=== PATIENT | female | born 1955 | race Caucasian/White ===

== ENCOUNTER 2018-05-15 07:38 | Inpatient (IN) | payer OTHER, MEDICAID ==
[2018-05-15] VITALS (7 sets, daily range): BP systolic 123–151; BP diastolic 79–111
[~2018-05-15] VITALS: Ht 157.5 cm; Wt 54.5 kg
[2018-05-15 08:17] LABS: CLARITY,URINE SLIGHTLY CLOUDY (Clear); COLOR,URINE YELLOW (Yellow); GLUCOSE, URINE NEGATIVE (Neg); KETONES,URINE 15 mg/dl (Neg); LEUKOCYTE ESTERASE ,URINE NEGATIVE (Neg); NITRITES, URINE NEGATIVE (Neg); OCCULT BLOOD,URINE SMALL (Neg); PROTEIN,URINE 30 mg/dl (Neg); UROBILINOGEN,URINE 0.2 E.U/dL (0.2-1.0)
[2018-05-15 08:23] LABS: UA COLLECTION TYPE CLN CATCH MIDSTREAM
[2018-05-15 08:27] LABS: BACTERIA,URINE 1+ /HPF (Neg); MUCUS STRANDS MANY /LPF (Neg); SQUAMOUS EPITHELIAL CELL,UR MANY /LPF (FEW)
[2018-05-15 08:50] LABS: BASOPHILS # (AUTO) 0.1 X10'3 (0-0.2); BASOPHILS % (AUTO) 1.2 % (0-1); EOSINOPHILS % (AUTO) 0.4 % (0-6); HEMATOCRIT 40.4 % (35.0-45.0); LYMPHOCYTES % (AUTO) 19.4 % (21-51); MEAN CORPUSCULAR HEMOGLOBIN 36.9 PG (27.0-31.0); MEAN CORPUSCULAR HGB CONC 34.7 % (33.0-36.5); MEAN CORPUSCULAR VOLUME 106.4 FL (78-98); MEAN PLATELET VOLUME 7.3 FL (7.4-10.4); MONOCYTES # (AUTO) 0.3 X10'3 (0-0.9); NEUTROPHILS # (AUTO) 3.8 X10'3 (1.8-7.7); PLATELET COUNT 156 X10'3 (140-440); RED CELL DISTRIBUTION WIDTH 14.2 % (11.5-14.5); WHITE BLOOD COUNT 5.2 X10'3 (4.5-11.0)
[2018-05-15 09:01] LABS: URINE AMPHETAMINE SCREEN NEGATIVE (Neg); URINE BARBITUATE SCREEN NEGATIVE (Neg); URINE BENZODIAZEPINES SCREEN NEGATIVE (Neg); URINE CANNABINOID SCREEN NEGATIVE (Neg); URINE COCAINE SCREEN NEGATIVE (Neg); URINE METHADONE SCREEN NEGATIVE (Neg); URINE OPIATE SCREEN NEGATIVE (Neg); URINE PHENCYCLIDINE SCREEN NEGATIVE (Neg)
[2018-05-15 09:07] LABS: ALANINE AMINOTRANSFERASE 33 U/L (12-78); ALBUMIN/GLOBULIN RATIO 0.9 (1.1-1.5); ALKALINE PHOSPHATASE 198 IU/L (46-116); ANION GAP 15 (8-16); ASPARTATE AMINO TRANSFERASE 126 U/L (10-37); BILIRUBIN,TOTAL 0.2 MG/DL (0.1-1.0); BLOOD UREA NITROGEN 12 MG/DL (7-18); BUN/CREATININE RATIO 20.7 (6.6-38.0); CALCIUM 7.9 MG/DL (8.5-10.1); CHLORIDE 99 MMOL/L (99-107); CREATININE 0.58 MG/DL (0.40-0.90); ETHANOL 0.161 GM/DL (0.0-0.010); GLUCOSE 107 MG/DL (70-104); SODIUM 141 MMOL/L (135-145); TOTAL PROTEIN 6.5 G/DL (6.4-8.2); eGFR > 90 ML/MIN
[2018-05-15 09:09] LABS: ACETAMINOPHEN < 2.0 UG/ML (10-30); INR 0.9 INR; PARTIAL THROMBOPLASTIN TIME 27 SECONDS (22-32); PROTHROMBIN TIME 9.6 SECONDS (9.0-12.0)
[2018-05-15 09:10] LABS: POTASSIUM 2.9 MMOL/L (3.5-5.1)
[2018-05-15] MEDS ORDERED: potassium Cl 10 mEq/100mL bag IV ONE (09:15)
[2018-05-15] MEDS ORDERED: potassium 10mEq/100ml NS w/LIDOcaine (10mg/bag) IV ONE (09:25)
[2018-05-15] MEDS ORDERED: fentaNYL/PF 50MCG/1 ML 2ML syringe IV ONE (09:35)
[2018-05-15 09:45] LABS: MAGNESIUM 1.6 MG/DL (1.5-2.4)
[2018-05-15] MEDS ORDERED: pantoprazole IV 80 MG in normal saline 100ml IV soln 100 ML IV ONE (10:05)
[2018-05-15] MEDS: pantoprazole 40 MG vial IV SCH ×2 (10:34→10:47)
[2018-05-15] MEDS ORDERED: bisacodyl 10mg suppository rectal RC PRN (10:45)
[2018-05-15] MEDS ORDERED: cloNIDine 0.1 MG/24 HOUR patch (7 day patch) TD SCH (10:45)
[2018-05-15] MEDS ORDERED: magnesium hydroxide 30ml (MOM) UD suspension PO PRN (10:45)
[2018-05-15] MEDS: K and/or MAG REPLACEMENT MC SCH (10:45)
[2018-05-15] MEDS ORDERED: potassium Cl 40MEQ/NS 500ml 500 ML IV PRN ×2 (10:45)
[2018-05-15] MEDS ORDERED: ondansetron/PF 4mg/2ml inj IV PRN (10:45)
[2018-05-15] MEDS ORDERED: acetaminophen 325mg tablet PO PRN (10:45)
[2018-05-15] MEDS ORDERED: morphine 2 MG/ML inj. syringe IV PRN (10:45)
[2018-05-15] MEDS ORDERED: LORazepam 1 MG tablet PO PRN (10:45)
[2018-05-15] MEDS ORDERED: magnesium 4gm in 100ml NS 100 ML IV PRN (10:45)
[2018-05-15] MEDS ORDERED: LORazepam 2 mg/ml vial IV PRN ×2 (10:45→11:15)
[2018-05-15] MEDS ORDERED: potassium Cl 20 mEq SR tablet PO PRN (10:45)
[2018-05-15] MEDS ORDERED: mag hydrox/Alum hydrox/simeth 30ml oral suspension PO PRN (10:45)
[2018-05-15] MEDS ORDERED: dextrose 50%-water 50ml dispensing syringe IV PRN (10:45)
[2018-05-15] MEDS ORDERED: magnesium Cl slow-release 64mg tablet PO PRN (10:45)
[2018-05-15] MEDS ORDERED: magnesium 1gm/100ml D5W IVPB 100 ML IV PRN (10:45)
[2018-05-15] MEDS ORDERED: pantoprazole 40MG/NS 100ML BAG 100 ML IV SCH ×2 (11:00)
[2018-05-15] MEDS: LORazepam 1 MG tablet PO PRN (11:23)
[2018-05-15] MEDS ORDERED: LIDOcaine Viscous 15ml cup ONE (14:10)
[2018-05-15] MEDS ORDERED: MIDAZolam 5mg/5ml vial ONE (14:10)
[2018-05-15] MEDS ORDERED: fentaNYL/PF 50MCG/1 ML 2ML syringe ONE (14:10)
[2018-05-15 14:57] LABS: BASOPHILS % (AUTO) 0.9 % (0-1); EOSINOPHILS % (AUTO) 0.4 % (0-6); HEMATOCRIT 40.3 % (35.0-45.0); HEMOGLOBIN 13.7 g/dl (12.0-16.0); LYMPHOCYTES # (AUTO) 1.3 X10'3 (1.1-4.8); MEAN CORPUSCULAR HEMOGLOBIN 37.2 PG (27.0-31.0); MEAN CORPUSCULAR VOLUME 109.3 FL (78-98); MEAN PLATELET VOLUME 7.4 FL (7.4-10.4); MONOCYTES # (AUTO) 0.3 X10'3 (0-0.9); MONOCYTES % (AUTO) 6.8 % (2-12); NEUTROPHILS # (AUTO) 3.4 X10'3 (1.8-7.7); NEUTROPHILS % (AUTO) 65.9 % (42-75); PLATELET COUNT 114 X10'3 (140-440); RED BLOOD COUNT 3.69 X10'6 (4.20-5.60); RED CELL DISTRIBUTION WIDTH 14.3 % (11.5-14.5)
[2018-05-15] MEDS: morphine 2 MG/ML inj. syringe IV PRN ×2 (17:38→21:21)
[2018-05-15] MEDS: pantoprazole 40MG/NS 100ML BAG 100 ML IV SCH ×2 (17:41→21:28)
[2018-05-15] MEDS: potassium cl 20mEq in 1/2 NS 1,000 ML IV SCH ×2 (20:44→22:00)
[2018-05-15 20:47] LABS: BASOPHILS % (AUTO) 0.9 % (0-1); EOSINOPHILS % (AUTO) 0.5 % (0-6); HEMOGLOBIN 13.7 g/dl (12.0-16.0); LYMPHOCYTES # (AUTO) 1.3 X10'3 (1.1-4.8); LYMPHOCYTES % (AUTO) 25.2 % (21-51); MEAN CORPUSCULAR HEMOGLOBIN 37.2 PG (27.0-31.0); MEAN CORPUSCULAR HGB CONC 34.3 % (33.0-36.5); MEAN CORPUSCULAR VOLUME 108.3 FL (78-98); MEAN PLATELET VOLUME 7.7 FL (7.4-10.4); MONOCYTES # (AUTO) 0.4 X10'3 (0-0.9); MONOCYTES % (AUTO) 8.5 % (2-12); NEUTROPHILS # (AUTO) 3.5 X10'3 (1.8-7.7); NEUTROPHILS % (AUTO) 64.9 % (42-75); PLATELET COUNT 134 X10'3 (140-440); RED BLOOD COUNT 3.69 X10'6 (4.20-5.60); RED CELL DISTRIBUTION WIDTH 14.2 % (11.5-14.5); WHITE BLOOD COUNT 5.2 X10'3 (4.5-11.0)
[2018-05-15] MEDS: potassium Cl 20 mEq SR tablet PO PRN (21:21)
[2018-05-15] MEDS: folic acid inj. 2 MG, thiamine inj. 100 MG, MVI, adult No.4 with vit. K 10 ML in dextro... IV SCH ×4 (22:04)
[2018-05-15] MEDS ORDERED: NO HOME MEDS (23:49)
[2018-05-16] VITALS: BP_SYST 129; BP_SYST 131; BP_SYST 154; BP_DIAS 102; BP_DIAS 84; BP_DIAS 98
[2018-05-16] MEDS: potassium Cl 20 mEq SR tablet PO PRN ×2 (01:26→05:27)
[2018-05-16] MEDS: morphine 2 MG/ML inj. syringe IV PRN ×4 (01:26→14:15)
[2018-05-16] MEDS: pantoprazole 40MG/NS 100ML BAG 100 ML IV SCH ×2 (01:26→05:27)
[2018-05-16 05:53] LABS: BASOPHILS % (AUTO) 0.7 % (0-1); EOSINOPHILS # (AUTO) 0.1 X10'3 (0-0.9); EOSINOPHILS % (AUTO) 1.2 % (0-6); HEMATOCRIT 37.4 % (35.0-45.0); HEMOGLOBIN 13.1 g/dl (12.0-16.0); LYMPHOCYTES # (AUTO) 1.5 X10'3 (1.1-4.8); LYMPHOCYTES % (AUTO) 32.3 % (21-51); MEAN CORPUSCULAR HGB CONC 35.1 % (33.0-36.5); MEAN CORPUSCULAR VOLUME 108.5 FL (78-98); MEAN PLATELET VOLUME 7.7 FL (7.4-10.4); MONOCYTES # (AUTO) 0.4 X10'3 (0-0.9); MONOCYTES % (AUTO) 8.8 % (2-12); NEUTROPHILS # (AUTO) 2.6 X10'3 (1.8-7.7); PLATELET COUNT 108 X10'3 (140-440); RED BLOOD COUNT 3.44 X10'6 (4.20-5.60); WHITE BLOOD COUNT 4.6 X10'3 (4.5-11.0)
[2018-05-16 05:55] LABS: ALANINE AMINOTRANSFERASE 23 U/L (12-78); ALBUMIN 2.6 G/DL (3.4-5.0); ALBUMIN/GLOBULIN RATIO 0.8 (1.1-1.5); ALKALINE PHOSPHATASE 167 IU/L (46-116); ANION GAP 10 (8-16); ASPARTATE AMINO TRANSFERASE 57 U/L (10-37); BILIRUBIN,TOTAL 0.5 MG/DL (0.1-1.0); BLOOD UREA NITROGEN 9 MG/DL (7-18); BUN/CREATININE RATIO 15.5 (6.6-38.0); CALCIUM 7.8 MG/DL (8.5-10.1); CHLORIDE 99 MMOL/L (99-107); CREATININE 0.58 MG/DL (0.40-0.90); GLUCOSE 76 MG/DL (70-104); MAGNESIUM 1.4 MG/DL (1.5-2.4); POTASSIUM 3.4 MMOL/L (3.5-5.1); SODIUM 137 MMOL/L (135-145); TOTAL CARBON DIOXIDE 28.4 MMOL/L (24-32); TOTAL PROTEIN 5.7 G/DL (6.4-8.2); eGFR > 90 ML/MIN
[2018-05-16 08:00] VITALS: BP 149/78
[2018-05-16] MEDS: K and/or MAG REPLACEMENT MC SCH (08:00)
[2018-05-16] MEDS: nicotine 14mg patch - 24hr TD SCH (08:00)
[2018-05-16] MEDS: LORazepam 1 MG tablet PO PRN ×3 (08:25→22:46)
[2018-05-16] MEDS ORDERED: diltiazem 5mg/ml 5ml inj. IV ONE (09:20)
[2018-05-16 09:21] VITALS: BP 149/78
[2018-05-16] MEDS ORDERED: potassium Cl oral solution 20 MEQ/15 ML PO PRN (09:25)
[2018-05-16] MEDS: potassium Cl oral solution 20 MEQ/15 ML PO PRN ×3 (10:30→19:31)
[2018-05-16 11:00] VITALS: BP 139/76
[2018-05-16] MEDS: folic acid inj. 2 MG, thiamine inj. 100 MG, MVI, adult No.4 with vit. K 10 ML in dextro... IV SCH ×4 (11:27)
[2018-05-16 16:00] VITALS: BP_SYST 134; BP_SYST 136; BP_SYST 154; BP_DIAS 87; BP_DIAS 92
[2018-05-16 19:00] VITALS: BP 152/85
[2018-05-16] MEDS: pantoprazole 40mg Tablet.DR PO SCH (19:30)
[2018-05-16] MEDS: HYDROcodone/acetaminophen 5mg/325mg tablet PO PRN (19:31)
[2018-05-16] MEDS ORDERED: pantoprazole 40 MG vial IV SCH (20:00)
[2018-05-16] MEDS: sucralfate 1gm/10ml UD suspension PO SCH (22:43)
[2018-05-17] MEDS: gabapentin 300mg capsule PO SCH ×4 (01:18→23:24)
[2018-05-17 04:00] VITALS: BP_SYST 117; BP_SYST 124; BP_SYST 144; BP_DIAS 85; BP_DIAS 89; BP_DIAS 90
[2018-05-17 06:44] LABS: ALANINE AMINOTRANSFERASE 24 U/L (12-78); ALBUMIN 2.8 G/DL (3.4-5.0); ALBUMIN/GLOBULIN RATIO 0.9 (1.1-1.5); ALKALINE PHOSPHATASE 169 IU/L (46-116); ANION GAP 10 (8-16); ASPARTATE AMINO TRANSFERASE 40 U/L (10-37); BILIRUBIN,TOTAL 0.5 MG/DL (0.1-1.0); BLOOD UREA NITROGEN 5 MG/DL (7-18); BUN/CREATININE RATIO 8.9 (6.6-38.0); CALCIUM 8.4 MG/DL (8.5-10.1); CHLORIDE 102 MMOL/L (99-107); CREATININE 0.56 MG/DL (0.40-0.90); GLUCOSE 88 MG/DL (70-104); MAGNESIUM 1.6 MG/DL (1.5-2.4); POTASSIUM 4.6 MMOL/L (3.5-5.1); SODIUM 140 MMOL/L (135-145); TOTAL CARBON DIOXIDE 27.7 MMOL/L (24-32); TOTAL PROTEIN 5.8 G/DL (6.4-8.2); eGFR > 90 ML/MIN
[2018-05-17] MEDS: K and/or MAG REPLACEMENT MC SCH (08:00)
[2018-05-17] MEDS: folic acid inj. 2 MG, thiamine inj. 100 MG, MVI, adult No.4 with vit. K 10 ML in dextro... IV SCH ×4 (08:00)
[2018-05-17 08:10] VITALS: BP 137/84
[2018-05-17] MEDS: HYDROcodone/acetaminophen 5mg/325mg tablet PO PRN ×2 (08:14→17:15)
[2018-05-17] MEDS: sucralfate 1gm/10ml UD suspension PO SCH ×4 (08:14→20:16)
[2018-05-17] MEDS: pantoprazole 40mg Tablet.DR PO SCH ×2 (08:14→20:17)
[2018-05-17] MEDS: nicotine 14mg patch - 24hr TD SCH (08:18)
[2018-05-17 11:14] LABS: EOSINOPHILS % (AUTO) 1.1 % (0-6); HEMATOCRIT 35.8 % (35.0-45.0); HEMOGLOBIN 12.6 g/dl (12.0-16.0); LYMPHOCYTES # (AUTO) 1.2 X10'3 (1.1-4.8); MEAN CORPUSCULAR HEMOGLOBIN 38.3 PG (27.0-31.0); MEAN CORPUSCULAR HGB CONC 35.3 % (33.0-36.5); MEAN CORPUSCULAR VOLUME 108.4 FL (78-98); MONOCYTES # (AUTO) 0.5 X10'3 (0-0.9); MONOCYTES % (AUTO) 11.1 % (2-12); NEUTROPHILS # (AUTO) 2.5 X10'3 (1.8-7.7); NEUTROPHILS % (AUTO) 58.8 % (42-75); PLATELET COUNT 113 X10'3 (140-440); RED BLOOD COUNT 3.31 X10'6 (4.20-5.60); RED CELL DISTRIBUTION WIDTH 14.2 % (11.5-14.5); WHITE BLOOD COUNT 4.2 X10'3 (4.5-11.0)
[2018-05-17 12:00] VITALS: BP 117/75
[2018-05-17] MEDS: thiamine 100mg tablet PO SCH (13:28)
[2018-05-17] MEDS: folic acid 1mg tablet PO SCH (13:28)
[2018-05-17] MEDS: multivitamins, therapeutics tablet PO SCH (13:28)
[2018-05-17 18:00] VITALS: BP 106/68
[2018-05-17] MEDS: LORazepam 1 MG tablet PO PRN (20:16)
[2018-05-18] VITALS: BP 97/62
[2018-05-18] MEDS: LORazepam 1 MG tablet PO PRN ×2 (03:44→19:05)
[2018-05-18] MEDS: HYDROcodone/acetaminophen 5mg/325mg tablet PO PRN ×3 (03:45→19:44)
[2018-05-18 06:52] LABS: ALANINE AMINOTRANSFERASE 16 U/L (12-78); ALBUMIN 2.3 G/DL (3.4-5.0); ALBUMIN/GLOBULIN RATIO 0.8 (1.1-1.5); ALKALINE PHOSPHATASE 132 IU/L (46-116); ANION GAP 8 (8-16); ASPARTATE AMINO TRANSFERASE 23 U/L (10-37); BILIRUBIN,TOTAL 0.3 MG/DL (0.1-1.0); BLOOD UREA NITROGEN 5 MG/DL (7-18); BUN/CREATININE RATIO 8.3 (6.6-38.0); CALCIUM 7.7 MG/DL (8.5-10.1); CHLORIDE 105 MMOL/L (99-107); GLUCOSE 101 MG/DL (70-104); MAGNESIUM 1.5 MG/DL (1.5-2.4); SODIUM 142 MMOL/L (135-145); TOTAL CARBON DIOXIDE 28.9 MMOL/L (24-32); TOTAL PROTEIN 5.1 G/DL (6.4-8.2); eGFR > 90 ML/MIN
[2018-05-18 07:13] VITALS: BP 98/63
[2018-05-18 07:14] VITALS: BP_SYST 104; BP_SYST 93; BP_SYST 98; BP_DIAS 61; BP_DIAS 63; BP_DIAS 69
[2018-05-18] MEDS: pantoprazole 40mg Tablet.DR PO SCH ×2 (07:42→19:43)
[2018-05-18] MEDS: sucralfate 1gm/10ml UD suspension PO SCH ×4 (07:42→21:14)
[2018-05-18] MEDS: thiamine 100mg tablet PO SCH (07:42)
[2018-05-18] MEDS: gabapentin 300mg capsule PO SCH ×3 (07:43→23:46)
[2018-05-18] MEDS: multivitamins, therapeutics tablet PO SCH (07:43)
[2018-05-18] MEDS: nicotine 14mg patch - 24hr TD SCH (07:43)
[2018-05-18] MEDS: folic acid 1mg tablet PO SCH (07:43)
[2018-05-18] MEDS: K and/or MAG REPLACEMENT MC SCH (08:00)
[2018-05-18 08:54] LABS: BASOPHILS % (AUTO) 0.8 % (0-1); EOSINOPHILS # (AUTO) 0.1 X10'3 (0-0.9); EOSINOPHILS % (AUTO) 1.3 % (0-6); HEMATOCRIT 33.1 % (35.0-45.0); HEMOGLOBIN 11.5 g/dl (12.0-16.0); LYMPHOCYTES # (AUTO) 1.6 X10'3 (1.1-4.8); LYMPHOCYTES % (AUTO) 35.5 % (21-51); MEAN CORPUSCULAR HGB CONC 34.8 % (33.0-36.5); MEAN CORPUSCULAR VOLUME 109.3 FL (78-98); MEAN PLATELET VOLUME 8.5 FL (7.4-10.4); MONOCYTES # (AUTO) 0.6 X10'3 (0-0.9); MONOCYTES % (AUTO) 12.6 % (2-12); NEUTROPHILS # (AUTO) 2.1 X10'3 (1.8-7.7); NEUTROPHILS % (AUTO) 49.8 % (42-75); PLATELET COUNT 121 X10'3 (140-440); RED BLOOD COUNT 3.03 X10'6 (4.20-5.60); RED CELL DISTRIBUTION WIDTH 13.8 % (11.5-14.5); WHITE BLOOD COUNT 4.4 X10'3 (4.5-11.0)
[2018-05-18 11:50] VITALS: BP 107/67
[2018-05-18 18:00] VITALS: BP_SYST 105; BP_SYST 107; BP_SYST 113; BP_SYST 116; BP_DIAS 62; BP_DIAS 66; BP_DIAS 68; BP_DIAS 73
[2018-05-19] VITALS: BP 113/73
[2018-05-19] MEDS: HYDROcodone/acetaminophen 5mg/325mg tablet PO PRN ×2 (05:54→14:45)
[2018-05-19 06:11] LABS: BASOPHILS % (AUTO) 0.5 % (0-1); EOSINOPHILS % (AUTO) 0.6 % (0-6); HEMOGLOBIN 11.4 g/dl (12.0-16.0); LYMPHOCYTES # (AUTO) 1.4 X10'3 (1.1-4.8); LYMPHOCYTES % (AUTO) 37.3 % (21-51); MEAN CORPUSCULAR HEMOGLOBIN 36.8 PG (27.0-31.0); MEAN CORPUSCULAR HGB CONC 33.5 % (33.0-36.5); MEAN CORPUSCULAR VOLUME 110.1 FL (78-98); MEAN PLATELET VOLUME 7.8 FL (7.4-10.4); MONOCYTES # (AUTO) 0.6 X10'3 (0-0.9); MONOCYTES % (AUTO) 14.5 % (2-12); NEUTROPHILS # (AUTO) 1.8 X10'3 (1.8-7.7); NEUTROPHILS % (AUTO) 47.1 % (42-75); PLATELET COUNT 130 X10'3 (140-440); RED BLOOD COUNT 3.09 X10'6 (4.20-5.60); RED CELL DISTRIBUTION WIDTH 14.7 % (11.5-14.5); WHITE BLOOD COUNT 3.9 X10'3 (4.5-11.0)
[2018-05-19 06:20] LABS: ALANINE AMINOTRANSFERASE 14 U/L (12-78); ALBUMIN 2.2 G/DL (3.4-5.0); ALBUMIN/GLOBULIN RATIO 0.8 (1.1-1.5); ALKALINE PHOSPHATASE 126 IU/L (46-116); ANION GAP 8 (8-16); ASPARTATE AMINO TRANSFERASE 17 U/L (10-37); BILIRUBIN,TOTAL 0.2 MG/DL (0.1-1.0); BLOOD UREA NITROGEN 5 MG/DL (7-18); BUN/CREATININE RATIO 8.3 (6.6-38.0); CALCIUM 7.9 MG/DL (8.5-10.1); CHLORIDE 107 MMOL/L (99-107); GLUCOSE 105 MG/DL (70-104); MAGNESIUM 1.6 MG/DL (1.5-2.4); POTASSIUM 3.5 MMOL/L (3.5-5.1); SODIUM 142 MMOL/L (135-145); TOTAL CARBON DIOXIDE 26.8 MMOL/L (24-32); eGFR > 90 ML/MIN
[2018-05-19] MEDS: sucralfate 1gm/10ml UD suspension PO SCH ×3 (07:16→16:28)
[2018-05-19] MEDS: nicotine 14mg patch - 24hr TD SCH (07:17)
[2018-05-19] MEDS: gabapentin 300mg capsule PO SCH ×2 (07:18→16:28)
[2018-05-19] MEDS: thiamine 100mg tablet PO SCH (07:18)
[2018-05-19] MEDS: multivitamins, therapeutics tablet PO SCH (07:18)
[2018-05-19] MEDS: folic acid 1mg tablet PO SCH (07:18)
[2018-05-19] MEDS: pantoprazole 40mg Tablet.DR PO SCH (07:18)
[2018-05-19] MEDS: LORazepam 1 MG tablet PO PRN ×2 (07:20→12:34)
[2018-05-19] MEDS: K and/or MAG REPLACEMENT MC SCH (07:23)
[2018-05-19 07:38] VITALS: BP 100/64
[2018-05-19 12:00] VITALS: BP 121/68
[2018-05-19] MEDS ORDERED: NICO-631 TD (15:30)
[2018-05-19] MEDS ORDERED: ATI1T PO (15:30)
[2018-05-19] MEDS ORDERED: HYDR-4383 PO (15:30)
[2018-05-19] MEDS ORDERED: MULT-1179 PO (15:30)
[2018-05-19] MEDS ORDERED: FOLI1TAB16 PO (15:30)
[2018-05-19] MEDS ORDERED: THI100T PO (15:30)
[2018-05-19] MEDS ORDERED: PANT40TA4 PO (15:30)
[2018-05-19] MEDS ORDERED: SUCR1ORA PO (15:30)
[2018-05-19] MEDS ORDERED: GABA-532 PO (16:16)
[2018-05-23 09:21] LABS: OCCULT BLOOD STOOL POSITIVE (Neg)
== END 2018-05-19 17:00 | disposition home or self-care (01) | DRG 378 ==
LOC: ER 07:38 → ED HOLD 10:44 → SUR 3N 12:40
PROVIDERS: ADMIT Internal Medicine; ATTEND Family Medicine
PROC: 0DB68ZX Excision of Stomach, Via Natural or Artificial Opening Endoscopic, Diagnostic (ICD-10-PCS; principal; 2018-05-15)
DX: K29.01 Acute gastritis with bleeding (principal); R71.0 Precipitous drop in hematocrit; K44.9 Diaphragmatic hernia without obstruction or gangrene; F10.229 Alcohol dependence with intoxication, unspecified; E87.6 Hypokalemia; F17.210 Nicotine dependence, cigarettes, uncomplicated; Z60.2 Problems related to living alone; Y90.0 Blood alcohol level of less than 20 mg/100 ml; F41.0 Panic disorder [episodic paroxysmal anxiety]; K21.0 Gastro-esophageal reflux disease with esophagitis; M23.92 Unspecified internal derangement of left knee; M23.91 Unspecified internal derangement of right knee; G89.4 Chronic pain syndrome; M54.9 Dorsalgia, unspecified; Z88.5 Allergy status to narcotic agent; Z88.8 Allergy status to other drugs, medicaments and biological substances; Z79.899 Other long term (current) drug therapy; Z79.82 Long term (current) use of aspirin; Z71.41 Alcohol abuse counseling and surveillance of alcoholic; Z71.6 Tobacco abuse counseling
CPT/HCPCS: 36415; 43239; 71045; 80053; 80305; 80320; 80329; 81001; 82272; 82948; 83735; 84132; 85025; 85610; 85730; 86885; 86900; 86901; 87070; 88305; 93005; 96361; 96374; 96375; 97110; 97116; 97530; 99152; 99285; A4620; C9113; J2250; J2270; J3010; J3411; J3475; J3480; J3490; J7030; J7060

== ENCOUNTER 2018-05-24 22:31 | Emergency (ER) | payer OTHER, MEDICAID ==
[~2018-05-24] VITALS: Ht 157.5 cm; Wt 50.0 kg
[~2018-05-24 22:31] MED LIST: ATI1T PO; FOLI1TAB16 PO; GABA-532 PO; HYDR-4383 PO; MULT-1179 PO; NICO-631 TD; PANT40TA4 PO; SUCR1ORA PO; THI100T PO
[2018-05-24 23:25] LABS: BASOPHILS # (AUTO) 0.1 X10'3 (0-0.2); BASOPHILS % (AUTO) 1.9 % (0-1); EOSINOPHILS % (AUTO) 0.3 % (0-6); HEMATOCRIT 34.6 % (35.0-45.0); HEMOGLOBIN 11.5 g/dl (12.0-16.0); LYMPHOCYTES # (AUTO) 2.2 X10'3 (1.1-4.8); MEAN CORPUSCULAR HEMOGLOBIN 36.3 PG (27.0-31.0); MEAN CORPUSCULAR HGB CONC 33.2 % (33.0-36.5); MEAN CORPUSCULAR VOLUME 109.4 FL (78-98); MEAN PLATELET VOLUME 7.4 FL (7.4-10.4); MONOCYTES # (AUTO) 0.7 X10'3 (0-0.9); MONOCYTES % (AUTO) 13.7 % (2-12); NEUTROPHILS # (AUTO) 2.3 X10'3 (1.8-7.7); NEUTROPHILS % (AUTO) 43.1 % (42-75); PLATELET COUNT 362 X10'3 (140-440); RED BLOOD COUNT 3.16 X10'6 (4.20-5.60); RED CELL DISTRIBUTION WIDTH 14.6 % (11.5-14.5); WHITE BLOOD COUNT 5.4 X10'3 (4.5-11.0)
[2018-05-24 23:35] LABS: ALBUMIN 2.6 G/DL (3.4-5.0); ANION GAP 14 (8-16); BLOOD UREA NITROGEN 10 MG/DL (7-18); BUN/CREATININE RATIO 19.6 (6.6-38.0); CALCIUM 7.6 MG/DL (8.5-10.1); CHLORIDE 108 MMOL/L (99-107); CREATININE 0.51 MG/DL (0.40-0.90); GLUCOSE 85 MG/DL (70-104); POTASSIUM 3.4 MMOL/L (3.5-5.1); SODIUM 148 MMOL/L (135-145); eGFR > 90 ML/MIN
[2018-05-25 00:11] VITALS: BP 100/63
== END 2018-05-25 00:22 | disposition home or self-care (01) ==
LOC: ER 22:32
DX: M19.071 Primary osteoarthritis, right ankle and foot (principal); Z98.890 Other specified postprocedural states; Z88.5 Allergy status to narcotic agent; Z88.6 Allergy status to analgesic agent; Z88.8 Allergy status to other drugs, medicaments and biological substances; Z79.899 Other long term (current) drug therapy
CPT/HCPCS: 36415; 73610; 80048; 85025; 93971; 99285

== ENCOUNTER 2018-05-26 21:15 | Emergency (ER) | payer OTHER, MEDICAID ==
[~2018-05-26] VITALS: Ht 157.5 cm; Wt 45.5 kg
[2018-05-26 21:16] VITALS: BP 125/79
== END 2018-05-26 21:40 | disposition left against medical advice (07) ==
LOC: ER 21:15
DX: R04.2 Hemoptysis (principal); Z53.21 Procedure and treatment not carried out due to patient leaving prior to being seen by health care provider